=== PATIENT | male | born 2000 | race African-American/Black ===

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

== ENCOUNTER 2018-05-25 23:06 | Emergency (ER) | payer OTHER ==
[~2018-05-25] VITALS: Ht 172.7 cm; Wt 64.9 kg
[2018-05-25 23:12] VITALS: TEMP 36.7; Ht 172.7 cm; Wt 64.9 kg
[2018-05-25] MEDS ORDERED: AZITHROMYCIN 250 MG TAB PO STA (23:20)
[2018-05-25] MEDS ORDERED: CEFTRIAXONE SOD 350MG/ML 1 GM VIAL IM STA (23:20)
[2018-05-25] MEDS ORDERED: ONDANSETRON 4MG OD TAB PO ONE (23:30)
[2018-05-25 23:59] VITALS: BP 137/78; PULSE 82; O2SAT 99
--- NOTE | 2018-05-26 03:08 | EMERGENCY ROOM VISIT NOTE ---
History First contact with patient: 23:15 Chief Complaint: STD MALE Stated Complaint: MILD BURN WHEN URINATING, CHLAMYDIA DISCHARGE Nursing Triage Summary: Pt c/o burning while urinating and penile discharge. Wants tested for gonorrhea/chlamydia. Pt has hx of STD-feels the same History of Present Illness The patient is a 17 year old male who presents to the Emergency Room with complaints of penile discharge with dysuria for the past day. Patient states he had chlamydia last year and symptoms feel similar. Patient denies penile / genitalia rash, hematuria, testicular pain, fevers, abdominal pain, rectal pain , back pain, sore throat or any other medical complaints. Review of Systems An 10 system review of systems was completed with positives and pertinent negatives listed in the HPI. Past Medical/Surgical History Medical Problems: (1) No pertinent past medical history Family History No pertinent family history Social History Smoking Status: Former Smoker Drug Use: none Marital Status: in relationship Housing Status: lives alone Current/Historical Medications No Active Prescriptions or Reported Meds Physical Exam Vital Signs Date Time Temp Pulse Resp B/P (MAP) Pulse Ox O2 Delivery O2 Flow Rate FiO2 05/25/18 23:59 82 18 137/78 99 05/25/18 23:12 36.7 80 18 151/74 98 Room Air Physical Exam VITALS: Vitals are noted on the nurse's note and reviewed by myself. Vital signs stable. GENERAL: -[place]ron[place] male, in no acute distress, nondiaphoretic, well- developed well-nourished. SKIN: Capillary reflex less than 2 seconds. HEENT: Normocephalic. PERRLA. EOMI. Nares patent. Mucous membranes moist. Neck is supple without nuchal rigidity. HEART: Regular rate and rhythm without murmurs gallops or rubs. LUNGS: Clear to auscultation bilaterally without wheezes, rales or rhonchi. No retractions or accessory muscle use. ABDOMEN: Positive bowel sounds x 4. Normal tympanic percussion. Soft, nontender, without masses or organomegaly. Justice sign negative. No guarding or rebound tenderness. No CVA tenderness exam: Normal male genitalia without rash, GC chlamydia swab taken and sent. No obvious discharge appreciated. 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 MUSCULOSKELETAL: No gross musculoskeletal defects. No pedal edema. No calf tenderness. NEURO: Patient was alert and oriented to person place and time. Normal sensation to light and sharp touch. No focal neurological deficits. Medical Decision & Procedures Laboratory Results Test 05/25/18 23:25 Urine Color YELLOW Urine Appearance CLEAR (CLEAR) Urine pH 7.0 (4.5-7.5) Urine Specific [place] 1.033 (1.000-1.030) Urine Protein TRACE (NEG) Urine Glucose (UA) NEG (NEG) Urine Ketones TRACE (NEG) Urine Occult Blood NEG (NEG) Urine Nitrite NEG (NEG) Urine Bilirubin NEG (NEG) Urine Urobilinogen NEG (NEG) Urine Leukocyte Esterase SMALL (NEG) Urine WBC (Auto) 10-30 /hpf (0-5) Urine RBC (Auto) 0-4 /hpf (0-4) Urine Hyaline Casts (Auto) 5-10 /lpf (0-5) Urine Epithelial Cells (Auto) 10-20 /lpf (0-5) Urine Bacteria (Auto) NEG (NEG) Medications Administered Medications (Trade) Dose Ordered Sig/Nida Route Start Time Stop Time Status Last Admin Dose Admin Ceftriaxone Sodium (Rocephin Im) 250 mg NOW STAT IM 05/25/18 23:20 05/25/18 23:22 DC 05/25/18 23:50 250 MG Azithromycin (Zithromax Tab) 1,000 mg NOW STAT PO 05/25/18 23:20 05/25/18 23:22 DC 05/25/18 23:49 1,000 MG Ondansetron HCl (Zofran Odt) 4 mg ONE ONCE PO 05/25/18 23:30 05/25/18 23:31 DC 05/25/18 23:49 4 MG ED Course Prior records reviewed and summarized as above. Triage Nursing notes reviewed. The patient's history was concerning for penile discharge and dysuria Differential diagnosis: Etiologies such as chlamydia, gonorrhea, UTI, yeast infection, as well as others were entertained.. Physical examination: The physical examination was consistent with STI ER treatment provided: Rocephin, Zithromax, Zofran On reassessment the patient felt better. Diagnostics interpreted by me: The labs revealed GC chlamydia culture pending. Urine concerning for contamination and sent for culture Patient was positive for chlamydia last year This appears to be STI, concerning for chlamydia. Patient was treated with Rocephin and Zithromax. He was advised to abstain from intercourse until he is cleared from the infection. He was informed to notify his partners to get checked for STI's. He was informed to review the results of this test today in 3 days. He was informed that he can call the ER for the culture results. He was advised to return to the ER immediately for fevers, penile pain, penile discharge, worsening signs or symptoms or as needed. Patient did not have acute abdomen on exam. He is well-appearing. He was afebrile and nontoxic. By the evaluation outlined above emergent etiologies such as yeast infection as well as others were deemed relatively unlikely. The pt informed about the findings as listed above. All questions were answered and pleased with the treatment. Return instructions were outlined and the patient was discharged in stable condition. Referral: The patient was referred back to primary care physician for follow-up in 2 to 3 days for a recheck of the current condition. The chart was completed utilizing [employer] Speech voice recognition software. Grammatical errors, random word insertions, pronoun errors, and incomplete sentences are an occassional consequence of this system due to software limitations, ambient noise, and hardware issues. Any formal questions or concerns about the content, text, or information contained within the body of this dictation should be directly addressed to the physician embalmer assistant for clarification. Medical Decision as above Medication Reconcilliation Current Medication List: was personally reviewed by me Blood Pressure Screening Patient's blood pressure: Normal blood pressure Impression Primary Impression: Dysuria Additional Impression: Concern about sexually transmitted disease in male without chantal... Departure Information Dispostion Home / Self-Care Condition GOOD Prescriptions No Active Prescriptions or Reported Meds Forms WORK / SCHOOL INSTRUCTIONS, HOME CARE DOCUMENTATION FORM, IMPORTANT VISIT INFORMATION Patient Instructions STDs, [facility] [employer] Additional Instructions No intercourse until you have reviewed your culture results and had been cleared of the infection. Have your partner get checked for STI's. Recommend always using protection when having intercourse. You can call the ER in 3 days for culture results. Follow-up family care in 3-4 days. Return to ER sooner for fevers, vomiting, abdominal pain, flank pain, worsening signs or symptoms or as needed. Problem Qualifiers
--- NOTE | 2018-06-01 16:45 | Pharmacy Progress Note ---
ED Pharmacist Culture FollowUp Date of Service: Jun 01, 2018. Serology positive for Chlamydia. Patient has already been treated in ED with azithromycin 1 g po x1. Spoke with patient. Informed of positive Chlamydia result and that he has already received treatment while in ED. Patient notes he has already referred his partner(s) for evaluation. Counseled to abstain from intercourse for at least 2 weeks from the time symptoms resolve. Counseled to make appointment with PCP for further testing. Patient acknowledged understanding.
== END 2018-05-25 23:56 | disposition home or self-care (01) ==
LOC: C.EDB 23:08
DX: R30.0 Dysuria (principal); R36.9 Urethral discharge, unspecified; Z11.3 Encounter for screening for infections with a predominantly sexual mode of transmission; Z11.8 Encounter for screening for other infectious and parasitic diseases; Z87.891 Personal history of nicotine dependence